=== PATIENT | female | born 1970 | race Native Hawaiian/Other Pacific Islander ===

== ENCOUNTER 2019-01-01 23:17 | Outpatient (CLI) | payer OTHER | END 2019-01-01 23:59 | disposition home or self-care (01) | LOC: LABW 23:17 | DX: Z79.1 Long term (current) use of non-steroidal anti-inflammatories (NSAID) (principal); Z01.812 Encounter for preprocedural laboratory examination | CPT/HCPCS: 85002 ==

== ENCOUNTER 2020-06-21 15:52 | Outpatient (CLI) | payer OTHER | END 2020-06-21 19:16 | disposition home or self-care (01) | LOC: RAD 15:52 | DX: M17.11 Unilateral primary osteoarthritis, right knee (principal) ==

== ENCOUNTER 2020-12-08 11:59 | Outpatient (CLI) | payer OTHER | END 2020-12-08 21:33 | disposition home or self-care (01) | LOC: RAD 11:59 | PROVIDERS: ATTEND Physician Assistant Medical | DX: M54.2 Cervicalgia (principal) ==

== ENCOUNTER 2021-03-08 09:31 | Outpatient (CLI) | payer OTHER | END 2021-03-08 23:59 | disposition home or self-care (01) | LOC: US 09:31 | PROVIDERS: ATTEND Psychiatry & Neurology Neurology | DX: M79.605 Pain in left leg (principal); M79.604 Pain in right leg; M71.20 Synovial cyst of popliteal space [Baker], unspecified knee; I83.813 Varicose veins of bilateral lower extremities with pain ==

== ENCOUNTER 2021-03-17 08:30 | Outpatient (CLI) | payer OTHER | END 2021-03-17 21:52 | disposition home or self-care (01) | LOC: US 08:30 | PROVIDERS: ATTEND Psychiatry & Neurology Neurology | DX: M79.604 Pain in right leg (principal); M79.605 Pain in left leg; I83.813 Varicose veins of bilateral lower extremities with pain ==

== ENCOUNTER 2021-03-31 12:20 | Outpatient (CLI) | payer OTHER | END 2021-03-31 19:09 | disposition home or self-care (01) | LOC: RAD 12:20 | PROVIDERS: ATTEND Nurse Practitioner Family | DX: R05 Cough (principal) ==